=== PATIENT | female | born 1990 | race Caucasian/White ===

== ENCOUNTER 2021-09-30 15:40 | Emergency (ER) | payer SELFPAY ==
[2021-09-30] MEDS ORDERED: Acetaminophen 325 MG TAB ONE (16:27)
== END 2021-09-30 18:17 | disposition home or self-care (01) ==
LOC: ERS 15:40
DX: S16.1XXA Strain of muscle, fascia and tendon at neck level, initial encounter (principal); S39.012A Strain of muscle, fascia and tendon of lower back, initial encounter; S60.011A Contusion of right thumb without damage to nail, initial encounter; Y04.2XXA Assault by strike against or bumped into by another person, initial encounter
CPT/HCPCS: 72125; 72128; 72131